=== PATIENT | male | born 2000 | race Caucasian/White ===

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

== ENCOUNTER 2024-01-14 00:21 | Emergency (ER) | payer OTHER ==
[2024-01-14] MEDS ORDERED: ACETAMINOPHEN 325 MG TABLET (FP) ONE (00:45)
[2024-01-14] MEDS: ACETAMINOPHEN 500 MG TABLET (FP) PO ONE (00:47)
[2024-01-14 00:55] VITALS: TEMP 97.9; BMI 22.9
[2024-01-14 03:27] VITALS: BP 120/75; PULSE 72; RESP 15
== END 2024-01-14 03:27 | disposition home or self-care (01) ==
LOC: JER 00:21
DX: S00.03XA Contusion of scalp, initial encounter (principal); S80.01XA Contusion of right knee, initial encounter; V03.131A Pedestrian on standing electric scooter injured in collision with car, pick-up or van in traffic accident, initial encounter; Y92.410 Unspecified street and highway as the place of occurrence of the external cause
CPT/HCPCS: 70450-TC; 73560-TC-RT-FY; 99284-25